=== PATIENT | male | born 1985 | race Hispanic/Latino ===

== ENCOUNTER 2018-06-16 01:54 | Emergency (ER) | payer MEDICARE, BC ==
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
[2018-06-16 04:51] LABS: BASO # 0.1 K/uL (0.0-0.2); BASO % 0.7 % (0.0-2.0); EOS % 0.2 % (0.0-4.0); HEMOGLOBIN 16.6 g/dL (12.0-18.0); LYMPH # 1.4 K/uL (1.0-4.3); LYMPH % 12.1 % (20.0-40.0); MEAN CELL VOLUME 91.8 fl (80.0-94.0); MEAN CORPUSCULAR HGB CONC 33.8 g/dL (33.0-37.0); MONO # 0.9 K/uL (0.0-0.8); MONO % 7.5 % (0.0-10.0); NEUT # 9.1 K/uL (1.8-7.0); NEUT % 79.5 % (50.0-75.0); RBC 5.35 Mil/uL (4.40-5.90); RED CELL DISTRIBUTION WIDTH 14.1 % (11.5-14.5); WHITE BLOOD COUNT 11.5 K/uL (4.8-10.8)
[2018-06-16 05:00] LABS: ALB/GLOB RATIO 1.4 (1.0-2.1); ALBUMIN 4.7 g/dL (3.5-5.0); ALT/SGPT 32 U/L (21-72); AST/SGOT 25 U/L (17-59); BLOOD UREA NITROGEN 22 mg/dl (9-20); CALCIUM 9.7 mg/dL (8.4-10.2); GFR NON-AFRICAN AMERICAN 58
--- NOTE | 2018-06-16 07:07 | ED PDOC ---
- Laboratory Results Result Diagrams: 06/16/18 04:40 06/16/18 04:40 - ECG O2 Sat by Pulse Oximetry: 96 - Progress ED Course And Treament: 1123: Stable. Crisis saw pt. and [facility] screen[place] pt. Fu with pcp. AAOx3. Does not meet criteria for admit. Medical Decision Making Medical Decision Makin:00 Patient endorsed to provider by Dr. Paul pending [facility] screening. Scribe Attestation: Documented by Farhan Rosas, acting as a scribe for Dm Carlos MD. Provider Scribe Attestation: All medical record entries made by the Scribe were at my direction and personally dictated by me. I have reviewed the chart and agree that the record accurately reflects my personal performance of the history, physical exam, medical decision making, and the department course for this patient. I have also personally directed, reviewed, and agree with the discharge instructions and disposition. Disposition Counseled Patient/Family Regarding: Studies Performed, Diagnosis - Clinical Impression Clinical Impression: Depression - POA Present On Arrival: None - Disposition Referrals: [facility] [Outside] - 06/17/18 Disposition: Routine/Home Disposition Time: 11:25 Condition: STABLE Additional Instructions: Return if not better in 3 days. Instructions: Depression
[2018-06-16 07:35] LABS: SQUAMOUS EPITHIAL < 1 /hpf (0-5); URINE BILIRUBIN NEGATIVE (NEGATIVE); URINE BLOOD NEGATIVE (NEGATIVE); URINE CLARITY CLEAR (Clear); URINE COLOR YELLOW (YELLOW); URINE GLUCOSE (UA) NEG (Normal); URINE LEUKOCYTE ESTERASE NEG Leu/uL (Negative); URINE PROTEIN 30 mg/dL (NEGATIVE); URINE UROBILINOGEN 0.2-1.0 mg/dL (0.2-1.0)
[2018-06-16 07:50] LABS: BARBITURATES, UR NEGATIVE (NEGATIVE); BENZODIAZEPINES, UR NEGATIVE (NEGATIVE); OPIATES, UR NEGATIVE (NEGATIVE); PHENCYCLIDINE, UR NEGATIVE (NEGATIVE)
[2018-06-16 19:59] VITALS: BP 121/66; PULSE 85; RESP 20; TEMP 98; O2SAT 99
== END 2018-06-16 11:50 ==
LOC: H.ER 01:54
DX: F32.9 Major depressive disorder, single episode, unspecified
CPT/HCPCS: 80053; 81003; 85025; 99284; G0480